=== PATIENT | female | born 1930 | race Caucasian/White ===

== ENCOUNTER 2017-06-27 16:58 | Emergency (ER) | payer MEDICARE, BC ==
[~2017-06-27] VITALS: Ht 152.4 cm; Wt 69.9 kg
[~2017-06-27 16:58] MED LIST: AMIO200 PO; APIX5TAB PO; ATEN-100 PO; CENTTAB9 PO; FISH1000 PO; IMDU30TA PO; LASI20TA PO; POTA-267 PO; VITA10002 PO; VITA400C70 PO; ZOCO40TA PO
[2017-06-27 17:01] VITALS: BP 173/101; PULSE 100; RESP 16; TEMP 97; O2SAT 96
[2017-06-27] MEDS ORDERED: ASPI-516 CHEW (17:36)
[2017-06-27] MEDS ORDERED: WARF4TAB52 PO (17:36)
[2017-06-27] MEDS ORDERED: ALPR0.5T3 PO (17:36)
[2017-06-27] MEDS ORDERED: FURO40TA PO (17:36)
[2017-06-27] MEDS ORDERED: DESL5TAB4 PO (17:36)
[2017-06-27] MEDS ORDERED: KLOR10TA PO (17:36)
[2017-06-27] MEDS ORDERED: SIMV40TA PO (17:36)
[2017-06-27] MEDS ORDERED: DIGO0.12 PO (17:36)
[2017-06-27] MEDS ORDERED: METO50TA PO (17:36)
[2017-06-27] MEDS ORDERED: PANT40TA3 PO (17:36)
--- NOTE | 2017-06-27 17:38 | PD ---
HPI Chief Complaint: Complaint Time Seen by Provider: 17:11 Travel History International Travel<30 days: No Contact w/Intl Traveler<30days: No Traveled to known affect area: No History of Present Illness HPI The patient was seen and examined in the presence of the nurse. This patient complains of pain in the suprapubic region. She is having difficulty voiding. She feels distended. She is on Coumadin. She had a little bit of hematuria when she was able to get some urine out. Severity is moderate. No alleviating factors. Duration 3 hours. Patient does have some dementia and history is supplemented by her daughter at bedside. Bleeding may be exacerbated by Coumadin PFSH Past Medical History Hx Anticoagulant Therapy: Yes (WARFARIN, BABY ASA DAILY) Asthma: No Blood Disorders: No Heart Rhythm Problems: Yes (NEW AFIB) Cancer: No Cardiac Catheterization: Yes Cardiovascular Problems: Yes (OK, HTN, CHOL, CARDIAC STENTS) High Cholesterol: Yes Chest Pain: No Congestive Heart Failure: Yes COPD: No Coronary Artery Disease: Yes Diabetes: No Diminished Hearing: Yes ([place]) Endocrine: No Genitourinary: No Hypertension: Yes Immune Disorder: No Musculoskeletal: No Neurologic: No Psychiatric: No Reproductive: No Respiratory: Yes Immunizations Current: Yes Myocardial Infarction: No Sleep Apnea: No ?: Not Menopausal: Yes Past Surgical History Appendectomy: Yes Body Medical Devices: STENT Cardiac Surgery: Yes (STENT PLACEMENT) Coronary Stent: Yes Eye Surgery: Yes Gynecologic Surgery: Yes Hysterectomy: Yes Oral Surgery: Yes (TONSILLECTOMY) Tonsillectomy: Yes Other Surgery: Yes (CATRACT, RT BREAST LIMPECTOMY,HYSTERECOMY) Family History Family Hypercholesterolemia: Yes Social History Alcohol Use: Yes (1 glass red wine per day) Tobacco Use: No Substance Use: No Allergies-Medications (Allergen,Severity, Reaction): Coded Allergies: No Known Allergies (Verified Adverse Reaction, Unknown, 06/27/17) Reported Meds & Prescriptions Reported Meds & Active Scripts Active Tylenol-Codeine #3 (Acetaminophen-Codeine) 300-30 mg Tab 1 Tab PO Q4H PRN Reported Desloratadine 5 Mg Tab 5 Mg PO DAILY Alprazolam 0.5 Mg Tab 0.5 Mg PO Q6H PRN Warfarin 1 Mg Tab 0.5 Mg PO DAILY Simvastatin 40 Mg Tab 40 Mg PO HS Aspirin 81 Mg Chew 81 Mg CHEW DAILY Pantoprazole (Pantoprazole Sodium) 40 Mg Tab 40 Mg PO DAILY Metoprolol Tartrate 50 Mg Tab 50 Mg PO BID Furosemide 40 Mg Tab 40 Mg PO DAILY Klor-Con 10 (Potassium Chloride) 10 Meq Tab 10 Meq PO DAILY Digoxin 0.125 Mg Tab 0.125 Mg PO DAILY Review of Systems General / Constitutional: No: Fever Eyes: No: Visual changes HENT: No: Headaches Cardiovascular: No: Chest Pain or Discomfort Respiratory: No: Shortness of Breath Gastrointestinal: No: Abdominal Pain Genitourinary: Positive: Hematuria, Decreased Urinary Output, Pelvic Pain, No: Dysuria Musculoskeletal: No: Pain Skin: No Rash Neurologic: No: Weakness Psychiatric: No: Depression Endocrine: No: Polydipsia Hematologic/Lymphatic: No: Easy Bruising Physical Exam Narrative GENERAL: Well-nourished, well-developed patient in no apparent distress. SKIN: Focused skin assessment reveals no rash and nodules. Skin is Warm and dry. HEAD: Atraumatic. Normocephalic. EYES: Pupils equal and round. No scleral icterus. No injection or drainage. ENT: No nasal bleeding or discharge. Mucous membranes pink and moist. NECK: Trachea midline. No JVD. CARDIOVASCULAR: Regular rate and rhythm. No murmur appreciated. RESPIRATORY: No accessory muscle use. Clear to auscultation. Breath sounds equal bilaterally. GASTROINTESTINAL: Abdomen soft, there is suprapubic distention with tenderness. Hepatic and splenic margins not palpable. MUSCULOSKELETAL: No obvious deformities. No clubbing. No cyanosis. No edema. NEUROLOGICAL: Awake and alert. No obvious cranial nerve deficits. Motor grossly within normal limits. Normal speech. PSYCHIATRIC: Appropriate mood and affect; insight and judgment reduced . Data Data Last Documented VS Vital Signs Date Time Temp Pulse Resp B/P (MAP) Pulse Ox O2 Delivery O2 Flow Rate FiO2 06/27/17 17:01 97.0 100 16 173/101 (125) 96 Orders Orders Urinalysis - C+S If Indicated (06/27/17 17:04) Urinary Catheter Insert/Apply (06/27/17 17:30) Prothrombin Time / Inr (Pt) (06/27/17 17:30) Complete Blood Count With Diff (06/27/17 17:30) Iv Access Insert/Monitor (06/27/17 17:30) Urine Culture (06/27/17 17:07) Labs Laboratory Tests Test 06/27/17 17:07 06/27/17 18:10 Urine Collection Type VOIDED Urine Color RED Urine Turbidity CLOUDY Urine pH 6.5 Urine Specific Carpenter 1.008 Urine Protein 300 OR GREATER mg/dL Urine Glucose (UA) NEG mg/dL Urine Ketones TRACE mg/dL Urine Occult Blood LARGE Urine Nitrite POS Urine Bilirubin NEG Urine Leukocyte Esterase MOD Urine RBC INNUM /hpf Urine WBC 15-19 /hpf Urine WBC Clumps RARE Urine Squamous Epithelial Cells 0-2 /hpf Urine Bacteria RARE /hpf Microscopic Urinalysis Comment CULTURE INDICATED White Blood Count 7.5 TH/MM3 Red Blood Count 5.15 MIL/MM3 Hemoglobin 14.8 GM/DL Hematocrit 46.1 % Mean Corpuscular Volume 89.5 FL Mean Corpuscular Hemoglobin 28.8 PG Mean Corpuscular Hemoglobin Concent 32.2 % Red Cell Distribution Width 13.7 % Platelet Count 235 TH/MM3 Mean Platelet Volume 9.1 FL Neutrophils (%) (Auto) 72.6 % Lymphocytes (%) (Auto) 13.8 % Monocytes (%) (Auto) 6.6 % Eosinophils (%) (Auto) 3.6 % Basophils (%) (Auto) 3.4 % Neutrophils # (Auto) 5.4 TH/MM3 Lymphocytes # (Auto) 1.0 TH/MM3 Monocytes # (Auto) 0.5 TH/MM3 Eosinophils # (Auto) 0.3 TH/MM3 Basophils # (Auto) 0.3 TH/MM3 CBC Comment DIFF FINAL Differential Comment Prothrombin Time 26.1 SEC Prothromb Time International Ratio 2.6 RATIO MDM Medical Decision Making Medical Screen Exam Complete: Yes Emergency Medical Condition: Yes Medical Record Reviewed: Yes Differential Diagnosis Urinary retention, supratherapeutic INR, hematuria Narrative Course I have reviewed the patient's electronic medical record. Patient seems to have urinary retention painful distended bladder Going to have the nurse place a Jackson catheter IV placed CBC is normal INR on Coumadin is 2.6 Urinalysis shows innumerable red cells and will be cultured but not suspicious for infection as the cause Patient did not have urinary retention. Only 200 cc of bloody urine in the catheter No blood clots are seen Pelvic exam was done and is negative for obvious prolapse I feel she is stable for outpatient follow-up. She is going to call the primary physician tomorrow to discuss and get follow-up and discuss urology follow-up We discussed risk and benefits of continued Coumadin She will hold it today and discuss with her physician tomorrow I wrote her a few Tylenol 3 for discomfort. I warned her about sedation and asked her to use them sparingly and see how they affect her before continuing Diagnosis Primary Impression: Gross hematuria Additional Impression: Anticoagulated on Coumadin Additional Instructions: The patient was advised to follow up with their physician and return if they worsen. The patient was warned about potential sedation for the medications they will receive on prescription. Hold Coumadin today and discuss Coumadin use with your physician tomorrow Use pain medication sparingly as it can make you drowsy Med/Other Pt SpecificInfo: Prescription(s) given Scripts Acetaminophen-Codeine (Tylenol-Codeine #3) 300-30 mg Tab 1 TAB PO Q4H Y for PAIN, #15 TAB 0 Refills Prov: Manuel Del Cid MD 06/27/17 Disposition: 01 DISCHARGE HOME Condition: Stable Manuel Del Cid MD Jun 27, 2017 17:38
[2017-06-27 17:52] LABS: BLOOD, URINE LARGE (NEG); GLUCOSE,URINE NEG (NEG); KETONE, URINE TRACE mg/dL (NEG); NITRITE,URINE POS (NEG); PH, URINE 6.5 (5.0-8.5); URINE LEUKOCYTE ESTERASE MOD (NEG)
[2017-06-27 18:15] LABS: BILIRUBIN, URINE NEG (NEG); URINE COLOR RED (YELLW/STRAW)
[2017-06-27 18:16] LABS: RBC, URINE INNUM /hpf (0-3); WBC, URINE 15-19 /hpf (0-5); WHITE BLOOD CELL CLUMPS RARE
[2017-06-27 18:17] LABS: BACTERIA, URINE RARE /hpf; SQUAMOUS EPITHELIAL CELL URINE 0-2 /hpf (0-5)
[2017-06-27 18:26] LABS: AUTOMATED NEUTROPHIL # 5.4 TH/MM3 (1.8-7.7); BASOPHIL # 0.3 TH/MM3 (0-0.2); BASOPHIL % 3.4 % (0.0-2.0); EOSINOPHIL # 0.3 TH/MM3 (0-0.4); EOSINOPHIL % 3.6 % (0.0-4.0); HEMATOCRIT 46.1 % (35.0-46.0); HEMOGLOBIN 14.8 GM/DL (11.6-15.3); LYMPH % 13.8 % (9.0-44.0); MEAN CELL VOLUME 89.5 FL (80.0-100.0); MEAN CORPUSCULAR HEMOGLOBIN 28.8 PG (27.0-34.0); MEAN CORPUSCULAR HGB CONC 32.2 % (32.0-36.0); MEAN PLATELET VOLUME 9.1 FL (7.0-11.0); MONO % 6.6 % (0.0-8.0); MONOCYTE # 0.5 TH/MM3 (0-0.9); NEUT % 72.6 % (16.0-70.0); PLATELET COUNT 235 TH/MM3 (150-450); RED BLOOD COUNT 5.15 MIL/MM3 (4.00-5.30); RED CELL DISTRIBUTION WIDTH 13.7 % (11.6-17.2); WHITE BLOOD COUNT 7.5 TH/MM3 (4.0-11.0)
[2017-06-27 19:26] LABS: INTERNATIONAL NORMALIZED RATIO 2.6 RATIO; PROTHROMBIN TIME - PATIENT 26.1 SEC (9.8-11.6)
[2017-06-27] MEDS ORDERED: TYLETAB34 PO (20:01)
[2017-06-27 20:38] VITALS: BP 101/70
== END 2017-06-27 20:49 | disposition home or self-care (01) ==
LOC: PHED 16:58
DX: R31.0 Gross hematuria (principal); B96.20 Unspecified Escherichia coli [E. coli] as the cause of diseases classified elsewhere; F03.90 Unspecified dementia, unspecified severity, without behavioral disturbance, psychotic disturbance, mood disturbance, and anxiety; I48.91 Unspecified atrial fibrillation; I11.0 Hypertensive heart disease with heart failure; I50.9 Heart failure, unspecified; I25.10 Atherosclerotic heart disease of native coronary artery without angina pectoris; E78.00 Pure hypercholesterolemia, unspecified; Z79.01 Long term (current) use of anticoagulants
CPT/HCPCS: 81001; 85025; 85610; 87077; 87086; 87186; 99283